=== PATIENT | female | born 1990 | race Caucasian/White ===

== ENCOUNTER 2019-06-23 09:56 | Emergency (ER) | payer OTHER ==
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
[2019-06-23 10:22] VITALS: TEMP 97.1; BMI 27.4
[2019-06-23] MEDS ORDERED: SODIUM CHLORIDE 0.9% 500 ML INFUS.BAG IV ONE (10:53)
[2019-06-23 11:28] LABS: EOS % 0.3 % (0-4.5); HEMATOCRIT 37.7 % (32.4-45.2); HEMOGLOBIN 12.7 GM/dL (10.7-15.3); LYMPH % 37.4 % (8-40); MCH 34.2 pg (25.7-33.7); MCHC 33.7 g/dl (32.0-36.0); MEAN CELL VOLUME 101.5 fl (80-96); MEAN PLT VOLUME 7.9 fl (7.5-11.1); NEUT % 55.3 % (42.8-82.8); PLATELET COUNT 153 K/MM3 (134-434); RBC 3.71 M/mm3 (3.60-5.2); WHITE BLOOD COUNT 4.5 K/mm3 (4.0-10.0)
[2019-06-23 11:56] LABS: BILIRUBIN,TOTAL 0.7 mg/dL (0.2-1); BLOOD UREA NITROGEN 8.8 mg/dL (7-18); CALCIUM 7.9 mg/dL (8.5-10.1); CREATININE 0.4 mg/dL (0.55-1.3); POTASSIUM 3.3 mmol/L (3.5-5.1); TOT PROT 8.1 g/dl (6.4-8.2)
[2019-06-23] MEDS ORDERED: POTASSIUM CHLORIDE TABS 20 MEQ TABLET.ER (FP) PO ONE ×2 (12:23→12:33)
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
[2019-06-23 15:08] VITALS: BP 104/69; PULSE 78
== END 2019-06-23 17:04 | disposition home or self-care (01) ==
LOC: JER 09:56
DX: F10.220 Alcohol dependence with intoxication, uncomplicated (principal); E87.6 Hypokalemia; Z59.0 Homelessness
CPT/HCPCS: 36415; 73030-TC-RT-FY; 80053; 84702; 85025; 87389; 99285-25